=== PATIENT | female | born 1930 | race Caucasian/White ===

== ENCOUNTER → 2016-08-07 | Day surgery (SDC) | payer MEDICARE, BC ==
[~2016-08-07] MED LIST: ALPR-138 PO; ASPI81 PO; B COTAB3 PO; BUME1TAB PO; BUPIVACAINE/EPINEPHRINE 0.5% 50 ML VIAL ONE; ENAL20TA81 PO; KETOROLAC TROMETHAMINE 30 MG/ML (IVP) VIAL IV PUSH ONE; LACTATED RINGER'S 1,000 ML BAG IV ONE; LEVO.05 PO; MIDAZOLAM HCL 2 MG/2 ML VIAL ONE; ONDANSETRON HCL 4 MG/2 ML VIAL IV PUSH ONE; PIOG30 PO; PROPOFOL 100 MG/10 ML INJ IV ONE; TRIAMCINOLONE ACETONIDE 40 MG/ML VIAL ONE; ZYRT10TA12 PO; [UNRECOGNIZED DRUG - CODE] TOP; ceFAZolin INJ 1,000 MG VIAL ONE
--- NOTE | 2016-08-08 19:24 | MP ---
cc: KARSTEN GALVEZ M.D. DATE OF SURGERY: 08/07/2016. PREOPERATIVE DIAGNOSIS: Left knee medial and lateral meniscus tear. POSTOPERATIVE DIAGNOSIS: Left knee medial and lateral meniscus tear. OPERATIVE PROCEDURE PERFORMED: Left knee arthroscopic partial medial and lateral meniscectomy. SURGEON: Dr. Karsten Galvez ANESTHESIA: General. ESTIMATED BLOOD LOSS: Less than 10 cc. TOURNIQUET TIME: Zero minute. COMPLICATIONS: None. JUSTIFICATION FOR THE PROCEDURE: This patient is an 85-year female who injured her left knee and has had persistent pain and pressure. Her condition failed to improve with conservative treatment. Clinical exam as well as MRI confirmed the above-named findings. The patient was counseled as to the risks, benefits, and alternatives to the above-named proposed surgical procedure and she did wish to proceed with surgery. DESCRIPTION OF THE PROCEDURE IN DETAIL: Written consent was obtained. The patient was identified by name and taken to the operating room and placed supine. General anesthesia was administered as well as 1 gram of IV Ancef. The left thigh was carefully placed in a well-padded leg ascencio. All bony prominences and pressure points were well padded. The left lower extremity was prepped and draped using isopropyl alcohol, Hibiclens solution and DuraPrep solution. After a time-out was performed, standard medial and lateral parapatellar arthroscopic portals were established. 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 The medial compartment revealed a complex tear of posterior horn of the medial meniscus. There was diffuse grade 2 and some early grade 3 chondromalacic changes of the medial femoral condyle. An arthroscopic shaver was introduced into the medial compartment to perform partial meniscectomy. The meniscal rim was probed and noted to be stable. A chondroplasty was performed in the medial femoral condyle to debride any unstable cartilage fragmentation. The intercondylar notch over the anterior and posterior cruciate ligaments was noted to be intact. The lateral compartment did reveal evidence of a midbody tear of the lateral meniscus extending into the anterior and posterior horns. An arthroscopic shaver was introduced into the lateral compartment to perform a partial lateral meniscectomy. Again, the meniscal rim was probed and noted to be stable after meniscectomy. At the conclusion of the surgical procedure, 30 cc of 0.5% Marcaine with epinephrine was injected into the knee joint and mixed with 40 milligrams of Kenalog. The arthroscope portals were closed with 3-0 Prolene suture. Sterile dressing applied. The patient tolerated the procedure well. No intraoperative complications were noted. MD HORTENCIA Alberto/KIMBERLY /1:54 PM /7:13 PM
== END | disposition home or self-care (01) ==
LOC: ESDC 11:34
PROVIDERS: ATTEND Orthopaedic Surgery Sports Medicine
DX: S83.232A Complex tear of medial meniscus, current injury, left knee, initial encounter (principal); S83.282A Other tear of lateral meniscus, current injury, left knee, initial encounter
CPT/HCPCS: 01400; 29880; J0690; J1885; J2250; J2405; J3010; J3301; J7120